=== PATIENT | female | born 1970 | race Caucasian/White ===

== ENCOUNTER 2020-08-31 09:27 | Outpatient (CLI) | payer OTHER, SELFPAY ==
[2020-08-31 09:51] LABS: Basophils Percent Auto 0.3 % (0.2-1.2); Eosinophils Percent Auto 0.3 % (0-4.4); Hemoglobin 12.3 g/dL (12.0-15.0); Immature Granulocyte Absolute 0.02 K/mm3 (0.00-0.031); Immature Granulocyte Percent A 0.2 % (0-0.5); Lymphocytes Absolute Auto 1.47 K/mm3 (0.9-3.2); Lymphocytes Percent Auto 13.3 % (18.3-44.2); Mean Corpuscular HGB Conc 32.4 g/dl (32-36); Mean Corpuscular Hemoglobin 29.9 pg (26-34); Mean Corpuscular Volume 92.5 fl (80-100); Mean Platelet Volume 10.2 fl (7.4-10.4); Monocytes Absolute Auto 0.6 K/mm3 (0.1-0.6); Monocytes Percent Auto 5.5 % (2.6-8.5); Neutrophils Absolute Auto 8.9 K/mm3 (1.3-6.7); Neutrophils Percent Auto 80.4 % (45.5-73.1); Platelet Count Result 242 k/mm3 (150-375); Red Blood Count 4.11 M/mm3 (4.2-5.4); Red Cell Distribution Width 12.7 % (11.5-14.5)
[2020-08-31 10:29] LABS: Alanine Aminotransferase 22 U/L (4-35); Albumin Level 4.1 g/dL (3.5-5.1); Alkaline Phosphatase 92 U/L (38-126); Anion Gap 7 mmol/L (8-16); Aspartate Amino Transferase 27 U/L (14-36); Bilirubin,Total 0.2 mg/dL (0.2-1.3); Blood Urea Nitrogen 18 mg/dL (7-17); Calcium 9.3 mg/dL (8.4-10.2); Carbon Dioxide 29 mmol/L (22-30); Chloride 102 mmol/L (98-107); Cholesterol 302 mg/dL (0-200); Estimated Glomerular Filt Rate > 60; Glucose 112 mg/dL (65-105); HDL Direct 69 mg/dL; Potassium 4.5 mmol/L (3.4-5.0); Sodium 138 mmol/L (137-145); Triglycerides 144 mg/dL (<150)
[2020-08-31 10:40] LABS: LDL Cholesterol Direct 151 mg/dL
== END 2020-08-31 09:28 | disposition home or self-care (01) ==
PROVIDERS: PCP Internal Medicine; Visit Provider Internal Medicine
DX: M19.90 Unspecified osteoarthritis, unspecified site (principal); G89.4 Chronic pain syndrome
CPT/HCPCS: 36415; 80053; 80061; 84443; 85025

== ENCOUNTER 2020-09-20 13:46 | Emergency (ER) | payer OTHER, SELFPAY ==
--- NOTE | ~2020-09-20 | XR_ITS ---
XR forearm LT 2V 09/20/2020 14:06 Indication: Status post fall. Left arm pain. Procedure: 2 views left forearm Comparison: No prior studies for comparison. Findings: There is a distal radial metaphyseal fracture with approximately one half bone width dorsal displacement and dorsal angulation. There is a displaced ulnar styloid fracture. There is mild soft tissue swelling. No foreign bodies. Impression: 1: Distal radial metaphyseal fracture with dorsal displacement and angulation. 2: Minimally displaced ulnar styloid fracture. Reviewed, dictated and finalized at location A. Impression: 1: Distal radial metaphyseal fracture with dorsal displacement and angulation. 2: Minimally displaced ulnar styloid fracture.
--- NOTE | ~2020-09-20 | XR_ITS ---
XR wrist LT 2V DATE: 09/20/2020 16:34 INDICATION: Postoperative reduction examination TECHNIQUE: AP and lateral views COMPARISON: 09/20/2020 left lower FINDINGS: Comminuted distal radial fracture is again noted, without 7 mm dorsal displacement, approxi mately 20 degrees apex anterior angulation and associated prominent dorsal inclination of the distal radial articular surface. Radiocarpal alignment is preserved. Transverse fracture at the base of the inner stylet process with mild lateral displacement. IMPRESSION: Dorsally displaced 20 degrees apex anteriorly angulated comminuted fracture of distal rad ius Fracture of ulnar styloid process. Reviewed, dictated and finalized at location A. IMPRESSION: Dorsally displaced 20 degrees apex anteriorly angulated comminuted fracture of distal radius Fracture of ulnar styloid process.
[2020-09-20 14:20] VITALS: BP 102/57; PULSE 65; RESP 18; TEMP 35.8; O2SAT 98
[2020-09-20 15:00] VITALS: BP 122/78; PULSE 72; RESP 16; O2SAT 99
--- NOTE | 2020-09-20 15:55 | ED.UPPEXIN ---
HPI - Extremity Injury (Upper) General Chief Complaint: Extremity Injury, Upper Stated Complaint: fall with arm injury/deformity Time Seen by Provider: 09/20/20 15:29 Source: patient Mode of arrival: EMS Limitations: no limitations History of Present Illness HPI narrative: This is a 50 year old female that presents to the ER for left wrist injury sustained just prior to arrival. Reports she was outside on her driveway with her dog. Reports her dog was barking with another dog which was unleashed. The dog came over to her driveway and she was trying to back up the driveway away from the other dog. This caused her to fall backwards onto her left wrist. Reports obvious deformity and pain to the area. Denies hitting her head or loss of consciousness. Reports decreased range of motion due to pain. Denies numbness. Related Data Home Medications Medication Instructions Recorded Confirmed fluoxetine mg 09/20/20 hydrocodone-acetaminophen 09/20/20 morphine PO 09/20/20 Allergies Allergy/AdvReac Type Severity Reaction Status Date / Time No Known Allergies Allergy Verified 09/20/20 14:25 Review of Systems Review of Systems: Narrative: CONSTITUTIONAL: Denies fever MUSCULOSKELETAL: Reports joint pain, and myalgia. NEUROLOGIC: Denies numbness All systems reviewed & are unremarkable except as noted in HPI and below PMFSH Family History Family History (Updated 11/30/13 @ 07:13 by DOCTOR UNKNOWN) Father Hypertension Family history of malignant neoplasm of urinary bladder Family history of type 2 diabetes mellitus Family history of heart disease in male family member before age 55 Mother Hypertension Family history of type 2 diabetes mellitus Social History Social History Smoking status: Never smoker Alcohol intake: never Gender identity (if verbalized by the patient): Female Exam Narrative: Exam Narrative: GENERAL: Well-appearing, well-nourished, and in no acute distress. HEAD: Normocephalic, atraumatic. EYES: EOMI. EXTREMITIES: Decreased active range of motion in the left wrist with obvious deformity. Normal radial pulses. Normal sensation SKIN: Warm, dry, no rash. NEURO: No focal deficits. Alert and oriented x3. PSYCH: Normal mood and affect Course Consultations Consultation #1: Spoke with Dr. Watts who recommends patient be followed up at a center with higher level of care. Date: 09/20/20 Time: 17:48 Vital Signs Vital signs: Vital Signs Temperature 96.5 F L 09/20/20 14:20 Pulse Rate 65 09/20/20 14:20 Respiratory Rate 18 09/20/20 14:20 Blood Pressure 102/57 L 09/20/20 14:20 Pulse Oximetry 98 09/20/20 14:20 Temperature 96.5 F L 09/20/20 14:20 Pulse Rate 65 09/20/20 14:20 Respiratory Rate 18 09/20/20 14:20 Blood Pressure 102/57 L 09/20/20 14:20 Pulse Oximetry 98 09/20/20 14:20 Procedures Orthopedic Joint Reduction Joint #1: Orthopedic Joint Reduction Date: 09/20/20 Orthopedic Joint Reduction Time: 17:46 Side: left Joint Reduction Location: wrist Analgesia: hematoma block Pre-Procedure Neuro Vascular Exam: normal Local Anesthesia: lidocaine 1% Amount of anesthesic used (mL): 4 Technique used: direct manipulation Post-reduction neuro exam: intact Post-reduction vascular: intact Post Reduction X-Ray Obtained: Yes Post Reduction X-Ray Results: other (Partially reduced) Splint Applied: Yes Patient Tolerated Procedure: well and no complications Orthopedic Splinting/Casting Injury #1: Splinting/Casting Date: 09/20/20 Splinting/Casting Time: 17:46 Side: left Upper Extremity Injury Location: wrist Upper Extremity Immobilizer: volar splint Splint: customized in ED OCL: volar Pre-Procedure Neuro Vascular Exam: normal Post-Procedure Neuro Vascular Exam: normal MDM - Extremity Injury (Upper) MDM Narrat
[2020-09-20 16:00] VITALS: BP 132/72; PULSE 80; RESP 16; O2SAT 100
[2020-09-20] MEDS: fentaNYL CITRATE INJ (*CRX) 100 MCG/2 ML VIAL 50 MCG IV PUSH ×2 (16:09→16:17)
[2020-09-20 19:12] VITALS: BP 138/77; PULSE 76; RESP 16; O2SAT 99
== END 2020-09-20 18:15 | disposition home or self-care (01) ==
PROVIDERS: Emergency Provider Family Medicine; PCP Internal Medicine
DX: S59.292A Other physeal fracture of lower end of radius, left arm, initial encounter for closed fracture (principal); S52.612A Displaced fracture of left ulna styloid process, initial encounter for closed fracture; W18.39XA Other fall on same level, initial encounter
CPT/HCPCS: 25605; 73090; 73100; 96374; 99285; A4565; J3010

== ENCOUNTER 2024-02-29 07:06 | Emergency (ER) | payer SELFPAY ==
--- NOTE | ~2024-02-29 | XR_ITS ---
EXAMINATION: XR chest 2V DATE: 02/29/2024 07:55 INDICATION: Shortness of breath. TECHNIQUE: Frontal and lateral views of the chest were obtained. COMPARISON: Chest 2 views 09/18/2017 FINDINGS: There is no pneumonia, pleural effusion, or pneumothorax. The heart size is normal. IMPRESSION: 1. No acute cardiopulmonary disease. Reviewed, dictated and finalized at location A. RITIES RESEARCH ANALYST
[2024-02-29 07:04] VITALS: BP 124/73; PULSE 75; RESP 18; TEMP 36.5; O2SAT 100
[2024-02-29 07:08] VITALS: PULSE 75
--- NOTE | 2024-02-29 07:08 | ECG_ITS ---
Test Date: 2024-02-29 07:12:22 Measurements Intervals [place] Rate: 67 P: 56 SC: 184 QRS: 66 QRSD: 86 T: 62 QT: 400 QTc: 424 Interpretive Statements SINUS RHYTHM BASELINE ARTIFACT- I, II, AVR, AVL, AVF, V1-V6 NORMAL ECG No previous ECG available for comparison Electronically Signed On 02-29-2024 08:28:25 [employer] by Aurelio Hanlye D.O.
[2024-02-29 07:24] LABS: Basophils Percent Auto 0.3 % (0.2-1.2); Eosinophils Absolute Auto 0.1 K/mm3 (0-0.3); Eosinophils Percent Auto 1.4 % (0-4.4); Hematocrit 38.4 % (37.0-47.0); Hemoglobin 12.7 g/dL (12.0-15.0); Immature Granulocyte Absolute 0.01 K/mm3 (0.00-0.031); Immature Granulocyte Percent A 0.2 % (0-0.5); Lymphocytes Absolute Auto 4.39 K/mm3 (0.9-3.2); Lymphocytes Percent Auto 68.1 % (18.3-44.2); Mean Corpuscular HGB Conc 33.1 g/dl (32-36); Mean Corpuscular Hemoglobin 31.1 pg (26-34); Mean Corpuscular Volume 94.1 fl (80-100); Mean Platelet Volume 10.1 fl (7.4-10.4); Monocytes Absolute Auto 0.4 K/mm3 (0.1-0.6); Monocytes Percent Auto 6.4 % (2.6-8.5); Neutrophils Absolute Auto 1.5 K/mm3 (1.3-6.7); Neutrophils Percent Auto 23.6 % (45.5-73.1); Platelet Count Result 218 k/mm3 (150-375); Red Blood Count 4.08 M/mm3 (4.2-5.4); Red Cell Distribution Width 11.9 % (11.5-14.5); White Blood Count 6.5 K/mm3 (4.5-10.0)
[2024-02-29 07:45] VITALS: BP 118/68; PULSE 62; RESP 16; O2SAT 100
[2024-02-29 07:52] LABS: Alanine Aminotransferase 16 U/L (6-35); Albumin Level 4.3 g/dL (3.5-5.1); Alkaline Phosphatase 49 U/L (38-126); Anion Gap 5 mmol/L (4-12); Aspartate Amino Transferase 33 U/L (14-36); Bilirubin,Total 0.5 mg/dL (0.2-1.3); Blood Urea Nitrogen 18 mg/dL (7-17); Calcium 9.2 mg/dL (8.4-10.2); Carbon Dioxide 28 mmol/L (22-30); Chloride 103 mmol/L (98-107); Estimated CRCL calculation 71 ml/min; Estimated Glomerular Filt Rate > 60; Glucose 106 mg/dL (65-110); Potassium 4.2 mmol/L (3.4-5.0); Sodium 136 mmol/L (137-145)
[2024-02-29 08:04] VITALS: O2SAT 100
[2024-02-29] MEDS: diazePAM INJ (*CRX) 10 MG/2 ML SYRINGE 2.5 MG IV PUSH (08:19)
--- NOTE | 2024-02-29 08:23 | ED_ITS ---
HPI - SOB/Dyspnea General Chief Complaint: Shortness of Breath/Dyspnea Stated Complaint: SOB Time Seen by Provider: 02/29/24 08:06 History of Present Illness HPI Narrative: 53-year-old female with a past medical history significant for asthma, anxiety and chronic pain. Today patient presents to the emergency department with feeling like she is having a panic attack. She states that she has been having intermittent episodes of crying, shaking and feeling like an elephant sitting on her chest. These come and go in waves and was going on since this morning. She has severe anxiety she states and presently only taking THC for relief. Does not take any prescription medications for anxiety at this time. Presently she denies any chest pain but states that has some difficulty catching her breath while in the room. She vacillates between speaking in clear concise sentences and then suddenly breaking in the tears. She called EMS for assistance today. She denies any nausea, vomiting but studies that she had a recent flu-like symptoms illness several days ago. Abdominal pain, back pain, ongoing chest pain, weakness, fatigue, neuropathy. Related Data Home Medications Medication Instructions Recorded Confirmed fluoxetine 20 mg capsule mg 09/20/20 hydrocodone 7.5 mg-acetaminophen 09/20/20 325 mg tablet morphine 15 mg tablet,extended PO 09/20/20 release Allergies Allergy/AdvReac Type Severity Reaction Status Date / Time No Known Allergies Allergy Verified 09/20/20 14:25 Review of Systems Review of Systems: As reviewed above in HPI [facility] Family History Family History Father Hypertension Family history of malignant neoplasm of urinary bladder Family history of type 2 diabetes mellitus Family history of heart disease in male family member before age 55 Mother Hypertension Family history of type 2 diabetes mellitus Social History Social History Smoking status: Never smoker Alcohol intake: never Gender identity (if verbalized by the patient): Female Exam Narrative: GENERAL: Very tearful, not in any acute distress able answer all my questions HEAD: [Normocephalic, atraumatic.] EYES: [PERRLA and EOMI.] ENT: Nares clear, no rhinorrhea or epistaxis. Mucous membranes moist. NECK: Supple. CHEST: [Clear to auscultation. No respiratory distress.] HEART: [Regular rate and rhythm]. No murmur heard. [Normal peripheral pulses.] ABDOMEN: [Soft, nondistended], [nontender], [No rigidity or guarding] EXTREMITIES: Normal range of motion. [No edema.] SKIN: Warm, dry, no rash. NEURO: [No focal deficits]. Alert and oriented [x3.] PSYCH: Very tearful, vacillates between clear concise speaking and bursting into tears Course Vital Signs Vital signs: Vital Signs Temperature 36.5 C 02/29/24 07:04 Pulse Rate 75 02/29/24 07:04 Respiratory Rate 18 02/29/24 07:04 Blood Pressure 124/73 02/29/24 07:04 Pulse Oximetry 100 02/29/24 07:04 Oxygen Delivery Room Air 02/29/24 07:04 Temperature 36.5 C 02/29/24 07:04 Pulse Rate 59 L 02/29/24 08:30 Respiratory Rate 16 02/29/24 08:30 Blood Pressure 111/71 02/29/24 08:30 Pulse Oximetry 97 02/29/24 08:30 Oxygen Delivery Room Air 02/29/24 08:04 MDM - SOB/Dyspnea MDM Narrative Medical decision making narrative: 53-year-old female with history of asthma, anxiety, chronic pain. Today patient presents to the emergency room with a chief complaint of feeling an anxiety/panic attack. She states that somebody sitting on her chest intermittently and she gets waves of severe panic. She states this has happened before but she does not take any prescription medications for this as her chronic pain doctor does not like anxiety medications. She has normal reassuring vital signs and overall appears well but is tearful. Symmetric pulses in all limbs, no extremity swelling, clear breath sounds bilaterally, no tachycardia, fever, hypoxia, blood pressure concerns. Overall does appear to be benign etiology secondary to potential psychiatric event such as a panic attack or panic disorder but cannot exclude any organic causes such as ACS or intrathoracic process such as pneumonia or electrolyte disturbances given age and presentation. Blood work was obtained including a troponin, CBC, CMP, EKG and chest x-ray. She was given 2.5 mg of intravenous Valium for symptomatic relief. Workup revealed no leukocytosis, anemia or any platelet abnormalities. Electrolytes all within normal limits, normal renal function panel, normal hepatic function panel, negative troponin, chest x-rays independent reviewed by myself and I do not appreciate any pneumonias pneumothorax pleural effusions or any heart abnormality evidence. No acute cardiopulmonary process as interpreted by radiology. EKG appears to be normal sinus rhythm with no baseline EKG for comparison. Normal rate rhythm an axis, normal QTC of 424, QRS of 86, AL interval 184 all within normal limits. No ST segment elevations or depressions or inversions, no ectopy. Normal sinus rhythm. EKG time 7:12 Given patient's unremarkable workup here in the emergency department improvement after the Valium and her history of anxiety with likely diagnosis being a panic attack today I believe she is stable for discharge home and safe to go home at this time. Patient agreeable to this plan of care. She was given return precautions and encouraged to follow-up with her primary care provider on outpatient basis. Medical Records Attestation: I reviewed the patient's medical records. Lab Data Attestation: I reviewed the patient's lab results. 02/29/24 07:10 02/29/24 07:10 Labs: Lab Results 02/29/24 Range/Units 07:10 WBC 6.5 (4.5-10.0) K/mm3 RBC 4.08 L (4.2-5.4) M/mm3 Hgb 12.7 (12.0-15.0) g/dL Hct 38.4 (37.0-47.0) % MCV 94.1 (80-100) fl MCH 31.1 (26-34) pg MCHC 33.1 (32-36) g/dl RDW 11.9 (11.5-14.5) % Plt Count 218 (150-375) k/mm3 MPV 10.1 (7.4-10.4) fl Immature Gran % (Auto) 0.2 (0-0.5) % Neut % (Auto) 23.6 L (45.5-73.1) % Lymph % (Auto) 68.1 H (18.3-44.2) % [place] % (Auto) 6.4 (2.6-8.5) % Eos % (Auto) 1.4 (0-4.4) % Baso % (Auto) 0.3 (0.2-1.2) % Lymph # (Auto) 4.39 H (0.9-3.2) K/mm3 [place] # (Auto) 0.4 (0.1-0.6) K/mm3 Eos # (Auto) 0.1 (0-0.3) K/mm3 Baso # (Auto) 0.0 (0.0-0.1) K/mm3 Abs Immat Gran (auto) 0.01 (0.00-0.031) K/mm3 Absolute Neuts (auto) 1.5 (1.3-6.7) K/mm3 Absolute Nucleated RBC 0.000 (0.0-0.012) K/mm3 Nucleated RBC % 0.0 (0.0-0.2) % Sodium 136 L (137-145) mmol/L Potassium 4.2 (3.4-5.0) mmol/L Chloride 103 (98-107) mmol/L Carbon Dioxide 28 (22-30) mmol/L Anion Gap 5 (4-12) mmol/L BUN 18 H (7-17) mg/dL Creatinine 0.70 (0.7-1.0) mg/dL Estim Creat Clear Calc 71 ml/min Estimated GFR > 60 (59 - ) Glucose 106 (65-110) mg/dL Calcium 9.2 (8.4-10.2) mg/dL Total Bilirubin 0.5 (0.2-1.3) mg/dL AST 33 (14-36) U/L ALT 16 (6-35) U/L Alkaline Phosphatase 49 (38-126) U/L Troponin I < 0.012 (0.000-0.034) ng/mL Total Protein 7.0 (6.3-8.2) g/dL Albumin 4.3 (3.5-5.1) g/dL Imaging Data Attestation: I personally reviewed and interpreted this imaging study as follows: Radiologist's impression: Impressions Chest X-Ray 02/29/24 07:59 IMPRESSION: 1. No acute cardiopulmonary disease. Discharge Plan Discharge Clinical Impression: Anxiety Patient Disposition: Home, Self-Care Condition: Stable Instructions: Antibiotic Form, Chest Pain (DC), Anxiety (ED) Additional Instructions: Your cardiac workup was very normal, no ongoing heart damage or any signs of ischemia or any kind of heart attack. Chest x-ray without any signs of pneumonia or infection. Laboratory studies were all normal. No obvious explanation for your symptoms aside from her baseline anxiety being exacerbated today. Please follow-up with your primary care provider on outpatient basis. If you have persistent symptoms or any other new concerns you can always get re- evaluated if needed. Prescriptions: No Action hydrocodone-acetaminophen 7.5-325 mg tablet morphine 15 mg tablet extended release PO fluoxetine 20 mg capsule Follow-up/Referrals: Donald,Gomez Rebolledo MD [Primary Care Provider] - Time of Disposition: 10:04
[2024-02-29 08:30] VITALS: BP 111/71; PULSE 59; RESP 16; O2SAT 97
--- NOTE | 2024-02-29 08:48 | PC.NURSE ---
Resting comfortably. Resp unlabored. States she still feels anxious but it is decreased.
[2024-02-29 08:50] LABS: Troponin I < 0.012 ng/mL (0.000-0.034)
[2024-02-29 10:18] VITALS: BP 124/67; PULSE 65; RESP 16; O2SAT 100
== END 2024-02-29 10:20 | disposition home or self-care (01) ==
PROVIDERS: Emergency Medicine; Emergency Provider Student in an Organized Health Care Education/Training Program; PCP Family Medicine
DX: F41.9 Anxiety disorder, unspecified (principal); J45.909 Unspecified asthma, uncomplicated; G89.29 Other chronic pain
CPT/HCPCS: 36415; 71046; 80053; 84484; 85025; 93005; 96374; 99284; J3360